=== PATIENT | male | born 1975 | race Caucasian/White ===

== ENCOUNTER → 2024-07-10 06:22 | Day surgery (SDC) | payer OTHER, SELFPAY | LOC: GI 06:22 | PROVIDERS: ATTENDING PHYSICIAN Internal Medicine Gastroenterology | DX: Z12.11 Encounter for screening for malignant neoplasm of colon (principal); D12.0 Benign neoplasm of cecum; D12.3 Benign neoplasm of transverse colon; K64.8 Other hemorrhoids | CPT/HCPCS: 45385; 88305 ==

== ENCOUNTER 2024-08-28 06:11 | Day surgery (SDC) | payer OTHER, SELFPAY ==
[2024-08-28] VITALS (8 sets, daily range): BP systolic 111–128; BP diastolic 66–79; BMI 25.1
[2024-08-28] MEDS: TYLENOL 1000 MG PO (06:47)
[2024-08-28] MEDS: NORMOSOL-R/PLASMALYTE-A 1000 IV (06:48)
--- NOTE | 2024-08-28 06:56 | HP.FOC2 ---
Focused History & Physical
Chief Complaint
HPI:
Chief Complaint: Left inguinal hernia
HPI / Indication for Planned Procedure: Patient is a 48-year-old male recently seen in outpatient surgical evaluation secondary to history of left inguinal swelling. Swelling is visible upon standing. No symptom suggestive of intermittent
incarceration or obstruction. Patient presents today for scheduled operative correction
Relevant Past Medical History: Negative (Denies any significant active or past medical history)
Relevant Social History: Negative
Relevant Family History: Negative
Relevant Past Surgical History: Positive for (Appendectomy)
Review of Systems
Review of Pertinent Systems: All Systems Negative
Medication
See Medication form for detailed medications: Yes
Medication List (including Herbals & OTC):
No Meds [No Current Medications] 08/28/24
Medications Reviewed: Yes
Allergies and Reactions
Patient has Allergies: No
Noted Allergies and Reactions:
Allergy/AdvReac Type Severity Reaction Status Date / Time
No Known Allergies Allergy Verified 08/28/24 06:33
Pertinent Physical Exam
All Other Systems: Negative
Head/Neck: Normal
Lungs: Normal
Heart: Normal
Abdomen: Other (Reducible left inguinal hernia)
Extremities: Normal
Neurological: Normal
Diagnosis / Assessment
48-year-old male presenting for scheduled operative correction symptomatic left inguinal hernia
Plan / Procedure
Robotic assisted laparoscopic repair left inguinal hernia with mesh
Anesthesia/Sedation to be done by Anesthesia Provider: Yes
--- NOTE | 2024-08-28 06:57 | W.SUR.PREOP ---
Pre-Operative Surgical Note
-
I have examined this patient prior to the performance of the scheduled procedure.
The patient's condition is unchanged from the time of the current History and
Physical and the patient is able to undergo the scheduled procedure.
--- NOTE | 2024-08-28 08:48 | W.IMMPOSTOP ---
Addendum entered and electronically signed by Eric Cabrera MD 08/28/24 08:58:
#[id number]
Original Note:
Surgical Immed Post Op Note
-
Primary Surgeon: Deborah
Assisting Surgeon: Irvin PRETTY
Pre-op Diagnosis: LIH
Post-op Diagnosis: LIH - indirect
Procedure Performed: RAL [place] repair LIH with mesh
Anesthesia Type: GETA + 0.25% Marcaine with epi
Specimen / Cultures: none
Estimated Blood Loss: 4mL
Complications: none immediate
Operative Findings: LIH - indirect. no direct. no lipoma. 3d max lg mid wt mesh. rTAPP repair.
== END 2024-08-28 10:30 | disposition home or self-care (01) ==
LOC: SDS 06:11
PROVIDERS: ATTENDING PHYSICIAN Surgery
DX: K40.90 Unilateral inguinal hernia, without obstruction or gangrene, not specified as recurrent (principal)
CPT/HCPCS: 49650; C1781